=== PATIENT | male | born 1990 | race Hispanic/Latino ===

== ENCOUNTER 2023-03-06 08:00 | Emergency (ER) | payer SELFPAY ==
[2023-03-06 08:08] VITALS: BP 110/64; PULSE 65; RESP 18; TEMP 36.4; O2SAT 98; BMI 28.1
--- NOTE | 2023-03-06 08:12 | ED.GENADULT ---
HPI - General Adult General Chief complaint: Extremity Injury, Upper Stated complaint: L hand cut bleeding Time Seen by Provider: 03/06/23 08:05 Source: patient Mode of arrival: Ambulatory History of Present Illness HPI narrative: Patient is a 33-year-old male who is right-hand dominant who is here for evaluation of a cut to his left hand. He stated that he cut it with a knife that he was using to clean fish. He covered it with a bandage came right to the emergency department. No other injuries from the event. He is unsure of the timing of his last tetanus shot. Related Data Previous Rx's Medication Instructions Recorded cephalexin 500 mg capsule 500 mg PO QID 5 days #20 caps 03/06/23 Allergies Allergy/AdvReac Type Severity Reaction Status Date / Time No Known Drug Allergies Allergy Verified 03/06/23 08:19 Review of Systems Constitutional Constitutional: Reports system reviewed and no additional complaints, except as documented Musculoskeletal Musculoskeletal: Reports system reviewed and no additional complaints, except as documented Integumentary/Breasts Skin/Breast: Reports system reviewed and no additional complaints, except as documented Patient History Social History Smoking Status: Never smoker Smoking Status: Never smoker Substance Use Type: marijuana Exam Initial Vital Signs Initial Vital Signs: Vital Signs Temperature 97.6 F 03/06/23 08:08 Pulse Rate 65 03/06/23 08:08 Respiratory Rate 18 03/06/23 08:08 Blood Pressure 110/64 03/06/23 08:08 Pulse Oximetry 98 03/06/23 08:08 Oxygen Delivery Method Room Air 03/06/23 08:08 Cardio Pulses: radial pulses present on the left Skin Other: 6 cm laceration to the hypothenar eminence of the left hand. No active bleeding. Neuro Sensory Exam: no sensory deficits noted Extrem Other: Cut to the palm of left hand. Procedures Laceration Repair Laceration 1: Site: hand Side (If applicable): left Size (cm): 6 Description: linear Depth: simple, single layer Local Anesthetic: lidocaine 1% Amount of anesthesia used (mL): 10 Pre-repair: wound explored, irrigated extensively and deep structures intact Skin layer closed with: nylon Skin layer suture size: 4-0 Number of sutures: 10 Technique: simple, interrupted Course Orders Ordered: Discontinued Medications Diphtheria/Tetanus/Acell Pertussis (Tet,Diph,Pertuss(Acell),Vac/Pf 0.5 Ml Syringe) 0.5 ml IM .ONCE ONE Stop: 03/06/23 08:14 Last Admin: 03/06/23 08:20 Dose: 0.5 ml Vital Signs Vital signs: Vital Signs - 8 hr 03/06/23 08:08 Temperature 97.6 F Pulse Rate 65 Respiratory Rate 18 Blood Pressure 110/64 Pulse Oximetry 98 Oxygen Delivery Method Room Air Medical Decision Making MDM Narrative Medical decision making narrative: Wound was cleaned. Patient's tetanus was updated. Closed as described above. Deep structures intact. Given the nature of the wound as it was a dirty knife and with sea food will start on prophylactic antibiotics. Discussed this with the patient. Discussed the need for follow-up and care. Discharge Plan Departure Patient Disposition: Home Clinical Impression: Laceration Instructions: DI for Laceration Repair Activity Restrictions/Additional Instructions: The stitches that were placed do need to be removed in 7-10 days. You can either go to the walk-in clinic or your primary doctor for this. Until then you can cover with an antibiotic ointment such as bacitracin or Neosporin what you can purchase [id number] and bandages. You can wash your hands like normal after 24 hours however do not soak your hands and any water until the wound is healed. Given the nature of the wound we will start you on antibiotics. Please take them as directed. Return to the emergency department for new symptoms. Prescriptions: New cephalexin 500 mg capsule 500 mg PO QID 5 Days Qty: 20 0RF Stand Alone Forms: Patient Portal/API
[2023-03-06] MEDS: TET,DIPH,PERTUSS(ACELL),VAC/PF 0.5 ML SYRINGE IM (08:20)
[2023-03-06] MEDS: BACITRACIN OINT 0.9 GM PCKT 1 APPLIC TOP (08:41)
== END 2023-03-06 08:51 | disposition home or self-care (01) ==
PROVIDERS: Emergency Provider Emergency Medicine
DX: S61.412A Laceration without foreign body of left hand, initial encounter (principal); W26.0XXA Contact with knife, initial encounter; Z23 Encounter for immunization
CPT/HCPCS: 12002; 90471; 99283; 90715